=== PATIENT | female | born 2000 | race Caucasian/White ===

== ENCOUNTER 2025-04-22 19:20 | Emergency (ER) | payer OTHER, SELFPAY ==
[2025-04-22 20:35] LABS: #Basophils 0.06 10x3/uL (0.0-0.2); #Eosinophils 0.26 10x3/uL (0.0-0.5); #Monocytes 0.86 10x3/uL (0.0-1.1); #Neutrophils 5.15 10x3/uL (1.5-8.4); %Basophils 0.5 % (0.0-2.0); %Lymphocytes 51.2 % (18.0-47.0); %Monocytes 6.6 % (0.0-10.0); %Neutrophils 39.2 % (40.0-75.0); Hematocrit 37.1 % (34.9-44.5); Hemoglobin 13.1 g/dL (12.0-15.5); Mean Corpuscular HGB CONC 35.3 g/dL (32.0-36.0); Mean Corpuscular Hemoglobin 27.3 pg (27.0-33.0); Mean Corpuscular Volume 77.5 fL (81.6-98.3); Mean Platelet Volume 9.5 fL (7.4-10.4); Platelet Count 401 10x3/uL (150-450); RBC Distribution Width 12.6 % (11.5-14.5); Red Blood Cell (RBC) Count 4.79 10x6/uL (3.90-5.03); White Blood Cell (WBC) Count 13.12 10x3/uL (3.5-10.5)
[2025-04-22 20:41] LABS: BHCG - Serum Negative (NEGATIVE); Pregs Control Bar Appear? YES (CONTROL BAR)
[2025-04-22 20:42] LABS: Pregs Control Background? CLEAR/WHITE (CLR/WHITE)
[2025-04-22 20:43] LABS: D-Dimer Test Less than 0.19 mcg/mL (0.19-0.50); INR-International Normal Ratio 0.9; PTT 23.5 sec (22.0-33.0)
[2025-04-22 20:46] LABS: ALT (SGPT) 26 U/L (Less than 34); AST (SGOT) 28 U/L (11-34); Albumin 4.1 g/dL (3.1-4.5); Alkaline Phosphatase 72 U/L (40-110); Anion Gap 15 mmol/L (10-20); BUN (Urea Nitrogen) 8 mg/dL (7.0-18.7); Bilirubin, Total 0.4 mg/dL (0.3-1.2); Calc. Creatinine Clearance 0 mL/min (70-130); Calcium 9.2 mg/dL (7.8-10.44); Carbon Dioxide 21 mmol/L (22-29); Chloride 103 mmol/L (98-107); Estimated GFR 129; Globulin 3.3 g/dL (2.4-3.5); Glucose 98 mg/dL (70-105); Protein, Total 7.4 g/dL (6.0-8.3); Sodium 136 mmol/L (136-145)
[2025-04-22 20:52] LABS: Troponin I Less than 0.010 ng/mL (< 0.028)
[2025-04-22 21:03] LABS: Bilirubin Neg (Negative); Blood, Urine Negative (Negative); Clarity Clear (Clear); Glucose, Urine (Dipstick) Normal (Negative); Ketone, Urine Negative (Negative); Leukocyte 500 (Negative); Nitrite Negative (Negative); Protein, Urine (Dipstick) Negative (Neg-Trace); Specific Gravity, Urine 1.015 (1.005-1.030); Urobilinogen Normal mg/dL (Less than 2)
[2025-04-22 21:47] LABS: CAUTI Indications for Culture Pelvic or flank pain; RBC/HPF 0-3 HPF (0-3)
[2025-04-22 21:48] LABS: Bacteria/HPF 2+ HPF (None Seen); Mucous/LPF 1+ LPF (<2+); Squamous Epithelial 0-3 HPF (0-3); Transitional Epithelial 0-3 HPF (None Seen)
[2025-04-22 21:50] LABS: Urine Culture Reflex No No
== END 2025-04-22 23:06 | disposition home or self-care (01) ==
LOC: CSHERS 19:20
DX: N39.0 Urinary tract infection, site not specified (principal)
CPT/HCPCS: 36415; 71045; 80053; 81001; 83880; 84484; 84703; 85025; 85379; 85610; 85730; 99283